=== PATIENT | female | born 1970 | race African-American/Black ===

== ENCOUNTER 2016-12-01 11:10 | Emergency (ER) | payer MEDICAID, OTHER ==
[~2016-12-01] VITALS: Ht 160 cm; Wt 59.0 kg
[~2016-12-01 11:10] MED LIST: BACITRACIN15 GM TOPIC; BACTRIM DS TAB1 EAC1 ORAL; IBUPROFEN600 MG ORAL; PRENAPLUS TABL1 EACH PO
[2016-12-01] MEDS ORDERED: IBUPROFEN600 MG ORAL (13:05)
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
[2016-12-01 14:18] VITALS: BP 111/73
[2016-12-01 14:19] VITALS: BP 111/73
--- NOTE | 2016-12-01 15:19 | Diagnostic Imaging Report ---
Indication: PAIN Technique: 3 views of the left shoulder Comparison: None Findings: No acute fractures or dislocations. Joint spaces are preserved. Impression: Negative
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
--- NOTE | 2016-12-04 08:38 | Diagnostic Imaging Report ---
Indication: PAIN Technique: 3 views of the cervical spine. Note that open-mouth view could not be obtained as patient unable to open mouth, per technologist Comparison: none Findings: No acute fractures. No dislocations. Vertebral body heights are preserved. Disc spaces are preserved. No prevertebral soft tissue swelling. Impression: Limited exam. No definite acute process
== END 2016-12-01 14:19 | disposition home or self-care (01) ==
LOC: EMR 12:20
DX: S00.93XA Contusion of unspecified part of head, initial encounter (principal); S46.911A Strain of unspecified muscle, fascia and tendon at shoulder and upper arm level, right arm, initial encounter; S40.811A Abrasion of right upper arm, initial encounter; V09.1XXA Pedestrian injured in unspecified nontraffic accident, initial encounter; Y92.410 Unspecified street and highway as the place of occurrence of the external cause
CPT/HCPCS: 70450; 72040; 99283

== ENCOUNTER 2017-01-15 09:55 | Emergency (ER) | payer OTHER ==
[~2017-01-15] VITALS: Ht 160 cm; Wt 70.3 kg
[2017-01-15] MEDS ORDERED: NKM (10:07)
[2017-01-15 10:08] VITALS: BP 128/80
[2017-01-15] MEDS ORDERED: ROBAXIN-750750 MG PO (10:22)
[2017-01-15] MEDS ORDERED: IBUPROFEN600 MG ORAL (10:22)
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
[2017-01-15] MEDS ORDERED: Methocarbamol 750mg tab ORAL ONE (10:30)
[2017-01-15 10:38] VITALS: BP 128/80
== END 2017-01-15 10:41 | disposition home or self-care (01) ==
LOC: EMR 10:17
DX: M25.511 Pain in right shoulder (principal)
CPT/HCPCS: 99284